=== PATIENT | male | born 1950 | race Caucasian/White ===

== ENCOUNTER 2020-10-14 12:02 | Outpatient (REF) | payer SELFPAY ==
--- NOTE | 2020-10-14 13:23 | MHC.AU.P13 ---
Hearing Instrument Follow-Up- Binaural Date of Visit: 10/14/20 Right Ear: Carburizer: Phonak Model: AUDEO M50-R Serial Number: [id number] Repair Warranty: 10/27/21 Loss and Damage Warranty: 10/27/21 Battery Size: Rechargeable Color: [place] Mechanical Cad Drafter: 2M Type of Mold: YASMIN SKELETON CASIMIRO MOLD Type of Wax Guard: CERUSHIELD Left Ear: Carburizer: Phonak Model: AUDEO M50R Serial Number: [id number] RepairWarranty: 10/27/21 Loss and Damage Warranty: 10/27/21 Battery Size: Rechargeable Color: [place] Mechanical Cad Drafter: 2M Type of Mold: YASMIN SKELETON CASIMIRO MOLD Type of Wax Guard: CERUSHIELD Follow-Up Summary: Patient walked in with broken right hearing aid. PATIENT NEVER PICKED UP HIS LOSS AND DAMAGE REPLACEMENTS OR TOLD US HE FOUND ORIGINAL AIDS. Called Adelaida at [facility] and she will take back the loss and damage aids for credit and reinstate patient's warranties. It is unclear if patient found left aid but he is not willing to pay replacement fee. L&D's were returned for credit. Right hearing aid will be sent for repair tomorrow as they need L&D aids credited before repair warranty reinstated. Call patient when right back from repair - his earmold on hold in repair drawer. Recommendations: Recommendations: Patient will be contacted when materials have arrived. Signature: Provider: LEELEE Chappell-HIS
== END 2020-10-14 12:03 | disposition home or self-care (01) ==
LOC: HO.HAP 12:02
PROVIDERS: Visit Provider Internal Medicine
DX: Z13.89 Encounter for screening for other disorder (principal)

== ENCOUNTER 2020-11-12 08:46 | Outpatient (REF) | payer SELFPAY | END 2020-11-12 08:47 | disposition home or self-care (01) | LOC: HO.HAP 08:46 | PROVIDERS: Visit Provider Internal Medicine | DX: Z13.89 Encounter for screening for other disorder (principal) ==